=== PATIENT | female | born 2000 | race Hispanic/Latino ===

== ENCOUNTER 2022-07-19 17:28 | Emergency (ER) | payer BC, SELFPAY ==
[2022-07-19 19:05] LABS: #Eosinphils 0.1 10x3/uL (0.0-0.5); #Monocytes 0.9 10x3/uL (0.0-1.1); #Neutrophils 5.5 10x3/uL (1.5-8.4); %Basophils 0.3 % (0.0-2.0); %Eosinophils 0.8 % (0.0-6.0); %Lymphocytes 24.7 % (18.0-47.0); %Monocytes 10.4 % (0.0-10.0); %Neutrophils 63.5 % (40.0-75.0); Hemoglobin 12.7 g/dL (12.0-15.5); Mean Corpuscular Hemoglobin 30.5 pg (27.0-33.0); Mean Corpuscular Volume 89.4 fl (81.6-98.3); Mean Platelet Volume 10.6 fl (7.4-10.4); Platelet Count 198 10x3/uL (150-450); RBC Distribution Width 12.4 % (11.5-14.5); Red Blood Cell (RBC) Count 4.17 10x6/uL (3.90-5.03); White Blood Cell (WBC) Count 8.6 10x3/uL (3.5-10.5)
[2022-07-19 19:14] LABS: ALT (SGPT) 11 U/L (8-55); AST (SGOT) 14 U/L (5-34); Alkaline Phosphatase 45 U/L (40-100); Anion Gap 11 mmol/L (10-20); BUN (Urea Nitrogen) 12 mg/dL (7.0-18.7); Bilirubin, Total 0.4 mg/dL (0.2-1.2); Calc. Creatinine Clearance 0 mL/min (70-130); Calcium 8.5 mg/dL (7.8-10.44); Carbon Dioxide 21 mmol/L (22-29); Chloride 110 mmol/L (98-107); Estimated GFR 128; Globulin 2.6 g/dL (2.4-3.5); Glucose 85 mg/dL (70-105); Potassium 3.5 mmol/L (3.5-5.1); Protein, Total 6.6 g/dL (6.0-8.3); Sodium 138 mmol/L (136-145)
[2022-07-19 19:31] LABS: Bilirubin Neg (Negative); Blood, Urine 10 (Negative); Clarity Clear (Clear); Glucose, Urine (Dipstick) Normal (Negative); Ketone, Urine 5 mg/dL (Negative); Leukocyte 100 (Negative); Nitrite Negative (Negative); Protein, Urine (Dipstick) 15 mg/dl (Neg-Trace); Specific Gravity, Urine 1.025 (1.005-1.030)
[2022-07-19 19:41] LABS: Bacteria/HPF 2+ HPF (None Seen); Mucous/LPF 2+ LPF (<2+); RBC/HPF 0-3 HPF (0-3); Squamous Epithelial 0-3 HPF (0-3)
== END 2022-07-19 20:06 | disposition home or self-care (01) ==
LOC: CSHERS 17:28
DX: O20.0 Threatened abortion (principal); O23.11 Infections of bladder in pregnancy, first trimester; N30.00 Acute cystitis without hematuria; Z3A.01 Less than 8 weeks gestation of pregnancy
CPT/HCPCS: 36415; 76856; 80053; 81003; 81015; 84702; 85025; 86900; 86901

== ENCOUNTER 2023-02-06 10:45 | Day surgery (SDC) | payer OTHER ==
[2023-02-06 11:38] LABS: Bilirubin Neg (Negative); Blood, Urine Negative (Negative); Clarity Clear (Clear); Glucose, Urine (Dipstick) Normal (Negative); Ketone, Urine Negative (Negative); Leukocyte 500 (Negative); Nitrite Negative (Negative); Protein, Urine (Dipstick) Negative (Neg-Trace); Specific Gravity, Urine 1.025 (1.005-1.030); Urobilinogen Normal mg/dL (Less than 2)
[2023-02-06 12:01] LABS: CAUTI Indications for Culture Pregnancy; RBC/HPF None Seen HPF (0-3)
[2023-02-06 12:02] LABS: Bacteria/HPF 4+ HPF (None Seen); Mucous/LPF 2+ LPF (<2+); Urine Culture Reflex Yes Yes
[2023-02-06] MEDS ORDERED: hydrALAZINE 20 MG/ML VIAL SLOW IVP PRN (12:17)
[2023-02-07 11:35] LABS: Chlamydia by PCR, Vaginal Swab Not Detected (NotDetected); GC by PCR, Vaginal Swab Not Detected (NotDetected); Tric.vaginalis PCR,Vaginal Sw Not Detected (NotDetected)
== END 2023-02-06 15:28 | disposition home or self-care (01) ==
LOC: CSHLD/OP 10:45
PROVIDERS: ATTEND Obstetrics & Gynecology
DX: O99.891 Other specified diseases and conditions complicating pregnancy (principal); R10.2 Pelvic and perineal pain; O23.593 Infection of other part of genital tract in pregnancy, third trimester; N89.8 Other specified noninflammatory disorders of vagina; O23.43 Unspecified infection of urinary tract in pregnancy, third trimester; N39.0 Urinary tract infection, site not specified; B96.89 Other specified bacterial agents as the cause of diseases classified elsewhere; Z79.899 Other long term (current) drug therapy; Z3A.34 34 weeks gestation of pregnancy
CPT/HCPCS: 81001; 87086; 87480; 87491; 87510; 87591; 87660; 87661; 99284

== ENCOUNTER 2024-06-13 20:37 | Emergency (ER) | payer SELFPAY ==
[2024-06-13] MEDS ORDERED: Acetaminophen 325 MG TAB ONE (21:10)
[2024-06-13 21:15] LABS: Bilirubin Neg (Negative); Blood, Urine 250 (Negative); Clarity Cloudy (Clear); Glucose, Urine (Dipstick) Normal (Negative); Ketone, Urine Negative (Negative); Leukocyte 500 (Negative); Nitrite Negative (Negative); Protein, Urine (Dipstick) 100 mg/dl (Neg-Trace); Specific Gravity, Urine 1.025 (1.005-1.030); Urobilinogen Normal mg/dL (Less than 2)
[2024-06-13 21:19] LABS: #Basophils 0.02 10x3/uL (0.0-0.2); #Monocytes 0.61 10x3/uL (0.0-1.1); #Neutrophils 4.29 10x3/uL (1.5-8.4); %Basophils 0.3 % (0.0-2.0); %Eosinophils 1.5 % (0.0-6.0); %Lymphocytes 25.6 % (18.0-47.0); %Neutrophils 62.9 % (40.0-75.0); Hematocrit 35.1 % (34.9-44.5); Hemoglobin 11.3 g/dL (12.0-15.5); Mean Corpuscular HGB CONC 32.2 g/dL (32.0-36.0); Mean Corpuscular Hemoglobin 30.1 pg (27.0-33.0); Mean Corpuscular Volume 93.4 fL (81.6-98.3); Mean Platelet Volume 10.3 fL (7.4-10.4); Platelet Count 247 10x3/uL (150-450); RBC Distribution Width 12.9 % (11.5-14.5); Red Blood Cell (RBC) Count 3.76 10x6/uL (3.90-5.03); White Blood Cell (WBC) Count 6.8 10x3/uL (3.5-10.5)
[2024-06-13 21:41] LABS: ALT (SGPT) 34 U/L (8-55); AST (SGOT) 26 U/L (5-34); Albumin 3.4 g/dL (3.5-5.0); Alkaline Phosphatase 66 U/L (40-110); Anion Gap 13 mmol/L (10-20); BUN (Urea Nitrogen) 12 mg/dL (7.0-18.7); Bilirubin, Total 0.4 mg/dL (0.2-1.2); Calc. Creatinine Clearance 0 mL/min (70-130); Calcium 9.2 mg/dL (7.8-10.44); Carbon Dioxide 21 mmol/L (22-29); Chloride 109 mmol/L (98-107); Estimated GFR 106; Globulin 3.2 g/dL (2.4-3.5); Glucose 97 mg/dL (70-105); Potassium 3.9 mmol/L (3.5-5.1); Protein, Total 6.6 g/dL (6.0-8.3); Sodium 139 mmol/L (136-145)
[2024-06-13 21:59] LABS: CAUTI Indications for Culture Pelvic or flank pain; RBC/HPF Greater than 50 HPF (0-3); WBC/HPF 21-50 HPF (0-3)
[2024-06-13 22:01] LABS: Bacteria/HPF 2+ HPF (None Seen); Mucous/LPF 2+ LPF (<2+); Trichomonas/HPF 1+ HPF (None Seen)
[2024-06-13 22:04] LABS: Urine Culture Reflex Yes Yes
== END 2024-06-13 22:55 | disposition home or self-care (01) ==
LOC: CSHERS 20:37
DX: O20.0 Threatened abortion (principal)
CPT/HCPCS: 36415; 76856; 80053; 81001; 84702; 85025; 86900; 86901; 87077; 87086

== ENCOUNTER 2024-06-15 15:20 | Emergency (ER) | payer SELFPAY | END 2024-06-15 17:40 | disposition home or self-care (01) | LOC: CSHERS 15:20 | DX: O20.0 Threatened abortion (principal); Z3A.00 Weeks of gestation of pregnancy not specified | CPT/HCPCS: 84702; 99282 ==